=== PATIENT | female | born 1965 | race Two or more races ===

== ENCOUNTER 2018-10-01 09:01 | Emergency (ER) | payer MEDICAID ==
[~2018-10-01] VITALS: Ht 152.4 cm; Wt 86.2 kg
[2018-10-01 09:15] VITALS: BP 151/90
[2018-10-01] MEDS ORDERED: cefTRIAXone SOD 500 MG VL IM ONE (09:45)
[2018-10-01] MEDS: cefTRIAXone SOD 1,000 MG VL ONE (09:49)
[2018-10-01] MEDS: TETANUS-DIPTH-ACEL PERTUSSIS 0.5ML SYRG IM ONE (09:49)
[2018-10-01] MEDS: LIDOCAINE 1% HCL (LOCAL ANESTH.) INJ 20ML MDV IJ ONE (09:49)
[2018-10-01] MEDS: cefTRIAXone SOD 1,000 MG VL IM ONE (09:50)
== END 2018-10-01 10:11 | disposition home or self-care (01) ==
LOC: ER 09:01
DX: S61.511A Laceration without foreign body of right wrist, initial encounter (principal); I10 Essential (primary) hypertension; Z85.3 Personal history of malignant neoplasm of breast; W26.0XXA Contact with knife, initial encounter; Y93.89 Activity, other specified; Y99.8 Other external cause status; Y92.89 Other specified places as the place of occurrence of the external cause
CPT/HCPCS: 12002; 90471; 90715; 96372; 99283; J0696; J2001

== ENCOUNTER 2018-10-10 12:42 | Emergency (ER) | payer MEDICAID ==
[~2018-10-10] VITALS: Ht 152.4 cm; Wt 86.2 kg
[2018-10-10 14:38] VITALS: BP 125/73
== END 2018-10-10 14:51 | disposition home or self-care (01) ==
LOC: ER 12:47
DX: S61.512D Laceration without foreign body of left wrist, subsequent encounter (principal); I10 Essential (primary) hypertension; X58.XXXD Exposure to other specified factors, subsequent encounter

== ENCOUNTER 2023-05-17 13:27 | Emergency (ER) | payer MEDICAID ==
[~2023-05-17] VITALS: Ht 152.4 cm; Wt 83.5 kg
[2023-05-17] MEDS ORDERED: IBUP-1456 PO (14:58)
[2023-05-17] MEDS ORDERED: METH-1182 PO (14:58)
[2023-05-17 15:00] VITALS: BP 130/63; PULSE 89; RESP 18; O2SAT 96
== END 2023-05-17 15:04 | disposition home or self-care (01) ==
LOC: ER 13:27
DX: S29.012A Strain of muscle and tendon of back wall of thorax, initial encounter (principal); S39.012A Strain of muscle, fascia and tendon of lower back, initial encounter; S00.03XA Contusion of scalp, initial encounter; I10 Essential (primary) hypertension; V43.62XA Car passenger injured in collision with other type car in traffic accident, initial encounter; Y92.89 Other specified places as the place of occurrence of the external cause; Y99.8 Other external cause status
CPT/HCPCS: 72220; 73010